=== PATIENT | male | born 1985 | race Caucasian/White ===

== ENCOUNTER → 2017-11-14 | Outpatient (CLI) | payer OTHER ==
--- NOTE | 2017-11-14 10:00 | DIAGNOSTIC IMAGING REPORT ---
SCROTAL ULTRASOUND CLINICAL HISTORY: Right testicular pain. Mass. COMPARISON STUDY: None. TECHNIQUE: Grayscale and color and duplex Doppler sonography of the scrotum was performed. FINDINGS: The testes are sonographically normal. The right measures 4.9 x 2.2 x 3.3 cm and the left measures 4.9 x 2.5 x 3.1 cm. There is no testicular mass. Color flow within each testis is symmetric. There is no evidence for epididymitis. There are a few tiny epididymal cysts. Note is made of an 8 mm right sided scrotalith. IMPRESSION: 1. Normal sonographic appearance of the testes. No testicular mass. No evidence for testicular torsion. 2. 8 mm right-sided scrotalith, a benign finding which may account for the palpable abnormality. 3. Small right hydrocele. Electronically signed by: Ellis Figueroa M.D. 11/14/2017 9:58 AM Dictated Date/Time: 11/14/2017 9:56 AM
== END | disposition home or self-care (01) ==
LOC: C.ULTRBC 09:23
PROVIDERS: ATTEND Family Medicine
DX: N50.811 Right testicular pain (principal); N43.3 Hydrocele, unspecified; N49.2 Inflammatory disorders of scrotum